=== PATIENT | male | born 1955 | race Caucasian/White ===

== ENCOUNTER 2022-04-28 07:31 | Observation (INO) | payer OTHER, BC ==
[2022-04-28 08:03] LABS: Absolute Lymphocytes (CBC) 0.8 K/uL (0.7-4.9); Hematocrit 47.9 % (39.6-49.0); Lymphocytes % 10.9 % (15.3-44.8); MCV 90.5 fL (80-100); MPV 7.9 fL (7.6-11.3)
[2022-04-28 08:09] LABS: Urine Blood Negative (Negative); Urine Glucose Negative (Negative); Urine Protein 1+ (Negative); Urine Specific Gravity 1.025 (1.005-1.030)
[2022-04-28 08:11] LABS: Protime INR 0.96
[2022-04-28 08:16] LABS: SARS-CoV-2 Antigen Rapid Res Negative (Negative)
[2022-04-28 08:20] LABS: Albumin 3.7 g/dL (3.4-5.0); Bilirubin Direct 0.1 mg/dL (0-0.2); Bilirubin Total 0.5 mg/dL (0.2-1.0); CKMB Creatine Kinase MB 1.3 ng/mL (1.0-3.6); Magnesium 2.4 mg/dL (1.8-2.4); Potassium 3.9 mmol/L (3.5-5.1); Protein, Total 7.5 g/dL (6.4-8.2)
--- NOTE | 2022-04-28 08:41 | RAD REPORT ---
EXAM DESCRIPTION: RAD - Chest Single View - 04/28/2022 8:21 am CLINICAL HISTORY: syncope COMPARISON: None TECHNIQUE: AP portable chest image was obtained 04/28/2022 8:21 am . FINDINGS: Lungs are clear. Heart and vasculature are normal. No measurable pleural effusion and no p neumothorax. No acute bony abnormality seen. No acute aortic findings suspected. IMPRESSION: No acute cardiopulmonary process.
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
[2022-04-28 13:31] VITALS: BMI 31.4
--- NOTE | 2022-04-28 13:40 | RAD REPORT ---
EXAM DESCRIPTION: CT - Head Brain Wo Cont - 04/28/2022 1:33 pm CLINICAL HISTORY: syncope Headache, drowsiness COMPARISON: No comparisons TECHNIQUE: All CT scans are performed using dose optimization technique as appropriate and may inclu de automated exposure control or mA/KV adjustment according to patient size. FINDINGS: No intracranial hemorrhage, hydrocephalus or extra-axial fluid collection.No areas of brai n edema or evidence of midline shift. The paranasal sinuses and mastoids are clear. The calvarium is intact. IMPRESSION: No acute intracranial abnormality.
[2022-04-28] MEDS: ENOXAPARIN 40 MG/0.4 ML SQ SCH (14:00)
[2022-04-28] MEDS ORDERED: ENOXAPARIN 40 MG/0.4 ML SQ ONE (16:48)
[2022-04-28] MEDS ORDERED: ACETAMINOPHEN 500 MG TAB PO ONE (16:56)
[2022-04-28] MEDS ORDERED: ACETAMINOPHEN 500 MG TAB ONE (17:02)
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
[2022-04-28] MEDS ORDERED: ATORVASTATIN 10 MG TAB PO SCH (21:00)
[2022-04-29 06:21] LABS: Hematocrit 47.6 % (39.6-49.0); Lymphocytes % 25.7 % (15.3-44.8); MCV 89.2 fL (80-100); MPV 7.7 fL (7.6-11.3); RBC Red Blood Cell Count 5.34 M/uL (4.33-5.43)
[2022-04-29] MEDS ORDERED: PANTOPRAZOLE 40MG TABLET PO SCH (06:30)
[2022-04-29 06:47] LABS: Magnesium 2.5 mg/dL (1.8-2.4); Phosphorus 3.7 mg/dL (2.5-4.9); Potassium 4.3 mmol/L (3.5-5.1)
--- NOTE | 2022-04-29 07:21 | EKG ---
Test Date: 2022-04-28 Test Time: 07:53:03 Proof Coin Collector: DARWIN MEASUREMENT RESULTS: Intervals: Rate: 83 GA: 240 QRSD: 140 QT: 392 QTc: 460 [place]: P: 38 GA: 240 QRS: -47 T: 16 INTERPRETIVE STATEMENTS: Sinus rhythm with 1st degree AV block Right bundle branch block Left anterior fascicular block Bifascicular block Abnormal ECG No previous ECG available for comparison Electronically Signed On 04-29-22 07:18:52 CDT by Denys Mirza
[2022-04-29] MEDS: ENOXAPARIN 40 MG/0.4 ML SQ SCH (08:06)
[2022-04-29 09:33] VITALS: O2SAT 96
--- NOTE | 2022-04-29 12:24 | RAD REPORT ---
EXAM DESCRIPTION: USCarotid Artery Bilateral04/29/2022 12:15 pm CLINICAL HISTORY: syncope COMPARISON: None FINDINGS: The velocity of the right internal carotid artery equals 87 cm/sec. The right ICA/CCA rati o The velocity of the left internal carotid artery equals 83 cm/sec. The left ICA/CCA ratio Mild plaque is present within the carotid arteries. The vertebral arteries demonstrate antegrade flow IMPRESSION: Mild plaque within the carotid arteries without evidence of a hemodynamically significan t stenosis NASCET criteria used. Mild 0-49% stenosis Moderate 50-69% stenosis Severe 70-99% stenosis
--- NOTE | 2022-04-29 12:58 | P.DS ---
Admission Date: 04/28/22 Discharge Date: 04/29/22 Disposition: ROUTINE DISCHARGE Discharge Condition: GOOD Reason for Admission: Syncope Consultations: 1. Cardiology Hospital Course: DIAGNOSES: # Syncope - possibly secondary to Cardiogenic Syncope vs Hypoglycemia Episode # Left Anterior Fascicular Block # Right Bundle Branch Block # First Degree AV Block (240 msec) # Gastroesophageal Reflux Disease # Dyslipidemia # Obstructive Sleep Apnea HOSPITAL COURSE: Mr. Darryl Lucas is a pleasant 66-year-old male with a past medical history significant for dyslipidemia, obstructive sleep apnea, and gastroesophageal reflux disease who was admitted to the [facility] on 04/28/2022 for syncope. He was admitted to the Medicine service for further evaluation. He reportedly had a blood sugar of 40 taken by EMS, but his blood glucose levels remained stable throughout his hospitalization without intervention. Cardiology was consulted to evaluate for evidence of cardiogenic syncope. He had an EKG, which revealed a right bundle branch block, left anterior fascicular block, and a first-degree atrioventricular charline block. A transthoracic echocardiogram and carotid ultrasound were performed. There does not appear to be clear explanation for his syncopal episode. Dr. Foley evaluated him and deemed him stable for discharge from a cardiac standpoint. I advised him to monitor his food intake and to avoid prolonged fasting in case that this episode represents hypoglycemia. Dr. Foley will schedule him for an outpatient appointment to possibly schedule Holter monitor to evaluate for arrhythmias as an outpatient. On 04/29/2022, he was seen on morning rounds and deemed medically stable for discharge. He was discharged with instructions to schedule follow-up a ppointments with his PCP (Dr. Rhodes) in 3-5 days and with Cardiology (Dr. Foley) in 5-7 days. He was given the opportunity to ask questions and reported no further questions. Furthermore, all questions were answered to the best of my ability. Today, I personally spent 20 minutes on his case, of which greater than 50% of the time was spent in patient education, counseling, and coordination of care as described above. - Physical Exam General: Alert, In no apparent distress, Oriented x3 HEENT: Atraumatic, PERRLA, Mucous membr. moist/pink, EOMI, Sclerae nonicteric Neck: Supple, JVD not distended Respiratory: Clear to auscultation bilaterally, Normal air movement Cardiovascular: No edema, Regular rate/rhythm, Normal S1 S2, No gallops, No rubs, No murmurs Gastrointestinal: Normal bowel sounds, Soft and benign, Non-distended, No tenderness, No rebound, No guarding Musculoskeletal: No clubbing Integumentary: No rashes Neurological: Normal speech, Normal strength at 5/5 x4 extr, Normal tone, Sensation intact, Cranial nerves 3-12 intact, Normal reflexes 2+, Normal affect Vital Signs/Physical Exam: Temp Pulse Resp BP Pulse Ox 97.7 F 65 16 119/67 96 04/29/22 08:00 04/29/22 08:00 04/29/22 08:00 04/29/22 08:00 04/29/22 08:00 Laboratory Data at Discharge: WBC 7.70 K/uL (4.3-10.9) 04/29/22 06:05 Hgb 16.3 g/dL (13.6-17.9) 04/29/22 06:05 Hct 47.6 % (39.6-49.0) 04/29/22 06:05 Plt Count 246 K/uL (152-406) 04/29/22 06:05 PT 10.5 SECONDS (9.5-12.5) 04/28/22 07:55 INR 0.96 04/28/22 07:55 APTT 32.5 SECONDS (24.3-36.9) 04/28/22 07:55 Sodium 139 mmol/L (136-145) 04/29/22 06:05 Potassium 4.3 mmol/L (3.5-5.1) 04/29/22 06:05 BUN 18 mg/dL (7-18) 04/29/22 06:05 Creatinine 0.83 mg/dL (0.55-1.3) 04/29/22 06:05 Glucose 110 mg/dL (74-106) H 04/29/22 07:27 Phosphorus 3.7 mg/dL (2.5-4.9) 04/29/22 06:05 Magnesium 2.5 mg/dL (1.8-2.4) H 04/29/22 06:05 Total Bilirubin 0.5 mg/dL (0.2-1.0) 04/28/22 07:55 AST 24 U/L (15-37) 04/28/22 07:55 ALT 37 U/L (12-78) 04/28/22 07:55 Alkaline Phosphatase 82 U/L (45-117) 04/28/22 07:55 Lipase 169 U/L (73-393) 04/28/22 07:55 Home Medications: RX: Esomeprazole Magnesium [Nexium] 20 mg PO DAILY 04/28/22 RX: Pravastatin [Pravachol*] 30 mg PO DAILY 04/28/22 Physician Discharge Instructions: 1. Please schedule a follow-up appointment with your PCP (Dr. Jasso) in 3-5 days 2. Please schedule a follow-up appointment with Cardiology (Dr. Foley) in 5-7 days Diet: Regular Activity: Ad dean Followup: Ollie Jasso DO [ACTIVE - CAN ADMIT] - 2-3 Days (Call for appointment.) Romie Foley MD [ACTIVE - CAN ADMIT] - 1 Week (Call for appointment.) Time spent managing pt's care (in minutes): 20
[2022-04-29 13:25] VITALS: BP 144/77; TEMP 97.8
--- NOTE | 2022-04-29 14:22 | ECHO ---
HEIGHT: 5 ft 6 in WEIGHT: 195 lb 0 oz DATE OF STUDY: 04/29/[address]: Sawyer Marie MD 2-DIMENSIONAL: YES M.MODE: YES DOPPLER: YES COLOR FLOW: YES TDS: NO PORTABLE: NO DEFINITY: NO BUBBLE STUDY: NO DIAGNOSIS: SYNCOPE CARDIAC HISTORY: CATHERIZATION: SURGERY: PROSTHETIC VALVE: PACEMAKER: MEASUREMENTS (cm) DIASTOLIC (NORMALS) SYSTOLIC (NORMALS) IVSd 1.2 (0.6-1.2) LA Diam 4.1 (1.9-4.0) LVEF 60-65% LVIDd 4.3 (3.5-5.7) LVIDs 2.5 (2.0-3.5) %FS 42% LVPWd 1.4 (0.6-1.2) Ao Diam 2.6 (2.0-3.7) 2 DIMENSIONAL ASSESSMENT: RIGHT ATRIUM: NORMAL LEFT ATRIUM: NORMAL RIGHT VENTRICLE: NORMAL LEFT VENTRICLE: NORMAL TRICUSPID VALVE: MILD TRICUSPID REGURGITATION MITRAL VALVE: MILD MITRAL REGURGITATION PULMONIC VALVE: NORMAL AORTIC VALVE: NORMAL PERICARDIAL EFFUSION: NONE AORTIC ROOT: NORMAL LEFT VENTRICULAR WALL MOTION: NORMAL. DOPPLER/COLOR FLOW: SEE BELOW. COMMENTS: NORMAL LEFT VENTRICULAR EJECTION FRACTION 60-65%. MILD MITRAL AND TRICUSPID REGURGITATION. NORMAL WALL MOTION. NORMAL DIASTOLIC FUNCTION. TECHNOLOGIST: DEEPALI BLEVINS
--- NOTE | 2022-04-29 19:21 | PN ---
Date of Progress Note: 04/29/2022 Subjective: Seen by bedside, doing clinically well. Does not have any complaints. No arrhythmia re corded on monitor overnight and feels very well. Review of Systems: No chest pain, shortness of breath, orthopnea, or cough. No nausea, vomiting, or diarrhea. No abdom inal pain. No dysuria, polyuria, or urinary urgency. All other systems reviewed and they were negat arnoldo. Physical Examination: Vital Signs: Reviewed. Head and Neck: Pupils are equal, reactive to light. Intact eye movements. No JVD. No cervical lym phadenopathy. Neck is supple. Thyroid is not enlarged. Lungs: Clear to auscultation bilaterally. No rhonchi, wheezing, or crackles. No accessory muscle u se. Heart: Regular rate and rhythm. No extra sounds. Abdomen: Soft, nontender. Bowel sounds positive. No organomegaly. No masses or hernia. No rigidi ty or rebound. Extremities: No edema, clubbing, or cyanosis. Intact pulses. Skin: No rashes. Neurologic: Alert, awake, oriented x3. No acute focal deficits appreciated. Investigations: Labs were reviewed. Assessment And Recommendations: 1.Syncope. No arrhythmias recorded on monitor. Echo is normal. No structural abnormalities. Okay from cardiology standpoint to be discharged and he will follow up with me next week and we will plan for outpatient Holter and stress test. 2.Obstructive sleep apnea. Encouraged to use CPAP machine on daily basis. SR/MODL Voice ID: [id number] Report ID: [id number]
== END 2022-04-29 13:35 | disposition home or self-care (01) ==
LOC: ER 07:31 → ERHOLD 13:19 → 2ND 17:37
PROVIDERS: ADMIT Internal Medicine; ATTEND Internal Medicine
DX: R55 Syncope and collapse (principal); E16.2 Hypoglycemia, unspecified; G47.33 Obstructive sleep apnea (adult) (pediatric); I44.0 Atrioventricular block, first degree; I44.4 Left anterior fascicular block; I45.10 Unspecified right bundle-branch block; E78.5 Hyperlipidemia, unspecified; K21.9 Gastro-esophageal reflux disease without esophagitis; Z20.822 Contact with and (suspected) exposure to COVID-19
CPT/HCPCS: 93005; 93306; 85025 ×2; 80048 ×2; 36415; 83735 ×2; 82550; 82947 ×5; 84100; 85610; 80076; 85730; 81003; 84484 ×3; 82553; 83690; 70450; 71045; 93880; 99285; 87811; J1650 ×2; G0378 ×3

== ENCOUNTER 2022-08-25 12:00 | Day surgery (SDC) | payer BC ==
[2022-08-24 09:34] LABS: Absolute Lymphocytes (CBC) 1.3 K/uL (0.7-4.9); Hematocrit 48.3 % (39.6-49.0); Lymphocytes % 19.9 % (15.3-44.8); MCV 89.1 fL (80-100); RBC Red Blood Cell Count 5.42 M/uL (4.33-5.43)
[2022-08-25] MEDS ORDERED: NA CHLORIDE 0.9% 500 ML ONE (12:11)
[2022-08-25] MEDS ORDERED: LIDOCAINE 1% MPF 30 ML VIAL ONE (12:27)
[2022-08-25] MEDS ORDERED: MIDAZOLAM HCL 2 MG/2 ML INJ ONE (12:35)
[2022-08-25] MEDS ORDERED: HEPARIN 5000 UNIT/ML 1 ML VIAL ONE (12:35)
[2022-08-25] MEDS ORDERED: HEPA 1000U/500MLS 2,000 UNIT/1,000 ML BAG IV ONE (12:35)
[2022-08-25] MEDS ORDERED: FENTANYL CITR 100 MCG/2 ML ONE (12:35)
[2022-08-25] MEDS ORDERED: VERAPAMIL HCL 10 MG/4 ML VIAL IV ONE (12:35)
[2022-08-25] MEDS ORDERED: ATROPINE SULF 1 MG/10 ML SYR IV ONE (12:36)
[2022-08-25] MEDS ORDERED: HEPARIN 10,000 UNIT/10 ML VIAL IV ONE (12:36)
[2022-08-25] MEDS ORDERED: REGADENOSON 0.4 MG/5 ML SYR IV ONE (13:52)
[2022-08-25] MEDS ORDERED: HEPA 1000U/500MLS 1,000 UNIT/500 ML BAG IV ONE (14:02)
[2022-08-25] MEDS ORDERED: ASPIRIN 325 MG TAB ONE (14:05)
[2022-08-25] MEDS ORDERED: TICAGRELOR 90 MG TABLET PO ONE (14:06)
--- NOTE | 2022-08-25 15:53 | OP ---
Date of Procedure: 08/25/2022 Surgeon: KEVIN GRIFFITH Procedures Performed: 1.Selective coronary angiogram. 2.FFR of the mid LAD stenosis, which was significant value of 0.75. 3.PCI of mid LAD using 3.5 x 24 mm Synergy drug-eluting stent. Indication: Unstable angina with abnormal stress test. Access: Right radial artery 6-Cambodian closed with TR band. Complications: None. Bleeding: Less than 10 mL. Anesthesia: Total sedation time was 55 minutes. Used fentanyl and Versed. Description Of Procedure: After risks, benefits, and alternatives were explained, the patient agreed to the procedure and signed informed consent. The patient was brought into the cardiac catheterizat ion laboratory, prepped and draped in the usual sterile fashion. Then, I accessed right radial arter y using pediatric micropuncture kit, placed 6-Cambodian Slender sheath and took 5-Cambodian [place] [address] into the aortic root, engaged left main and right coronary artery and took standard views, and th en exchanged for 6-Cambodian EBU3.5 guide and engaged the left main and took a Comet wire. Gave systemi c heparin to assure ACT level above 250. Comet wire was taken to the aortic root and pressures were equalized, and then wire was advanced into the LAD passing the area of stenosis. FFR was done using Lexiscan was significant at 0.75. So he was given 80 mg of Brilinta, 325 mg aspirin. Then, I sent a short Run-Through wire into the first diagonal branch to protect it and then the lesion of the mid L AD was dilated and then placed 3.5 x 24 mm Synergy drug-eluting stent without difficulty. Then, we r emoved the wires and final angiogram was satisfactory. Then, I removed the guide and the sheath and placed TR band with good hemostasis. Findings: 1.Left main; large and normal. 2.LAD; large vessel with mid 70% to 80% stenosis. FFR was strongly positive 0.75. Status post succ essful PCI as above. The LAD appears to be normal. The diagonal 1 branch has proximal 40% stenosis. The left circumflex moderate size and normal. 3.RCA; large and dominant with mid multiple tandem lesions ranging between 40% and 50% and then the PDA has focal 70% stenosis. Conclusion: 1.Severe mid LAD stenosis, status post successful PCI as above. 2.Severe PDA stenosis, which will be staged at a later time due to the contrast load was used today. 3.Mild coronary artery disease elsewhere. Plan: 1.Aspirin, Brilinta, and high-dose statin. 2.Staged PCI of the PDA in about 4 weeks. SR/MODL Voice ID: [id number] Report ID: [id number]
[2022-08-25 17:47] VITALS: BP 136/72; O2SAT 95
== END 2022-08-25 17:40 | disposition home or self-care (01) ==
LOC: CCL 12:00
PROVIDERS: ATTEND Internal Medicine
DX: I25.110 Atherosclerotic heart disease of native coronary artery with unstable angina pectoris (principal); E78.5 Hyperlipidemia, unspecified; R03.0 Elevated blood-pressure reading, without diagnosis of hypertension; Z79.899 Other long term (current) drug therapy; Z88.8 Allergy status to other drugs, medicaments and biological substances
CPT/HCPCS: 85025; 80048; 36415; 85610; 85347 ×2; 85730; 92928; 93454; 93571; C1893; Q9967; C1725; J2001; J1644 ×3; J2250; J3010; J2785; J7040; C1769; J0461

== ENCOUNTER 2023-04-21 10:30 | Day surgery (SDC) | payer OTHER, MEDICARE ==
[2023-04-20 10:19] LABS: Absolute Lymphocytes (CBC) 0.9 K/uL (0.7-4.9); Hematocrit 43.2 % (39.6-49.0); MCV 90.6 fL (80-100); Platelets 200 thou/uL (152-406); RBC Red Blood Cell Count 4.76 M/uL (4.33-5.43)
[2023-04-20 10:22] LABS: Protime INR 1.03
[2023-04-20 10:29] LABS: Potassium 3.7 mEq/L (3.5-5.1)
--- NOTE | 2023-04-20 12:36 | EKG ---
Test Date: 2023-04-20 Test Time: 09:44:10 [employer] Machine Operator: NAVNEET MEASUREMENT RESULTS: Intervals: Rate: 67 IA: 184 QRSD: 186 QT: 444 QTc: 469 [place]: P: 23 IA: 184 QRS: -82 T: 85 INTERPRETIVE STATEMENTS: Sinus rhythm with premature atrial complexes Left axis deviation Left ventricular hypertrophy with QRS widening and repolarization abnormality Lateral infarct, age undetermined Inferior infarct, age undetermined Abnormal ECG Electronically Signed On 04-20-23 12:36:24 CDT by Romie Floey
[2023-04-21] MEDS ORDERED: NA CHLORIDE 0.9% 500 ML ONE (11:06)
[2023-04-21] MEDS ORDERED: HEPA 1000U/500MLS 2,000 UNIT/1,000 ML BAG IV ONE (11:17)
[2023-04-21] MEDS ORDERED: MIDAZOLAM HCL 2 MG/2 ML INJ ONE (11:17)
[2023-04-21] MEDS ORDERED: NITROGLYCERIN 100 MCG/ML SYR (for cath lab use only) IV ONE (11:18)
[2023-04-21] MEDS ORDERED: VERAPAMIL HCL 10 MG/4 ML VIAL IV ONE (11:18)
[2023-04-21] MEDS ORDERED: FENTANYL CITR 100 MCG/2 ML ONE (11:18)
[2023-04-21] MEDS ORDERED: HEPARIN 5000 UNIT/ML 1 ML VIAL ONE (11:18)
[2023-04-21] MEDS ORDERED: ATROPINE SULF 1 MG/10 ML SYR IV ONE (11:18)
[2023-04-21] MEDS ORDERED: HEPARIN 10,000 UNIT/10 ML VIAL IV ONE (11:19)
[2023-04-21] MEDS ORDERED: ASPIRIN 325 MG TAB ONE (12:02)
[2023-04-21] MEDS ORDERED: CLOPIDOGREL 75 MG TABLET ONE (12:02)
--- NOTE | 2023-04-21 13:10 | OP ---
Date of Procedure: 04/21/2023 Surgeon: KEVIN GRIFFITH Procedures Performed: 1.Selective coronary angiogram. 2.PCI of severe mid PDA stenosis. I used 2.75 x mm Synergy drug-eluting stent. Indication: Known severe coronary artery disease with chest pain. Access: Right radial artery 6-Vietnamese closed with TR band. Complications: None. Bleeding: Less than 20 mL. Anesthesia: Total sedation time was 20 minutes. Description Of Procedure: After risks, benefits, alternatives were explained, patient agreed to proc edure and signed informal consent. Patient was brought in the cardiac catheterization laboratory, pr epped and draped in the usual sterile fashion and then I accessed right radial artery using pediatric micropuncture kit, placed 6-Vietnamese Slender sheath and took a 6-Vietnamese JR4 guide into the aortic root , engaged the RCA, gave systemic heparin to assure ACT level above 250. Patient is already on aspiri n and Plavix, and then I took Runthrough wire into the RCA, placed it distally in the PDA and then us ing 2.75 x 8 mm stent, I opened the stenosis of the PDA with excellent expansion, 0% residual stenosi s. Final angiogram was satisfactory. I removed the wire and the guide and then took a 6-Vietnamese JL3. 5 catheter into the aortic root over a J-wire, engaged the left main, took standard views and then I removed the catheter and the sheath, placed TR band with good hemostasis. Findings: 1.Left main; large and normal. 2.LAD, very large with widely patent proximal to mid LAD stent and normal rest of the LAD and diagon al branches. 3.Left circumflex is normal. 4.RCA, it is a dominant circulation with mid 40% to 50% stenosis, unchanged from last angiogram and mid PDA of 70% stenosis, status post successful PCI using 2.75 x 8 mm Synergy drug-eluting stent. Conclusion: 1.Severe mid PDA stenosis, status post successful PCI as above. 2.Widely patent LAD stent and moderate coronary artery disease elsewhere. Plan: Aspirin, Plavix, and statin. SR/MODL Voice ID: [id number] Report ID: [id number]
[2023-04-21 15:10] VITALS: BP 140/70; O2SAT 96
== END 2023-04-21 15:34 | disposition home or self-care (01) ==
LOC: PRE 10:30
PROVIDERS: ATTEND Internal Medicine
DX: I25.10 Atherosclerotic heart disease of native coronary artery without angina pectoris (principal); I44.2 Atrioventricular block, complete; I10 Essential (primary) hypertension; E78.5 Hyperlipidemia, unspecified; E78.00 Pure hypercholesterolemia, unspecified; Z95.5 Presence of coronary angioplasty implant and graft; Z79.82 Long term (current) use of aspirin; Z79.899 Other long term (current) drug therapy; Z88.8 Allergy status to other drugs, medicaments and biological substances
CPT/HCPCS: 93005; 85025; 80048; 36415; 85610; 85730; 93454; 76937; C1893; Q9967; C1725; C9600; J1644; J0461; J2250; J3010; J7040